=== PATIENT | female | born 1960 | race Caucasian/White ===

== ENCOUNTER 2023-07-07 06:15 | Day surgery (SDC) | payer MEDICARE, BC ==
[~2023-07-07 06:15] MED LIST: Acetaminophen 325 MG Tab PO SCH; Lactated Ringers 1,000 ML IV SCH; Morphine 8 MG, EPINEPHrine 0.3 MG, Cefuroxime 750 MG, Ketorolac 30 MG, Sodium Chloride ... PRN; Pregabalin 25 MG Cap PO SCH; Sodium Chloride 0.9% 10 ML Syringe FLUSH PRN; Sodium Chloride 0.9% 10 ML Syringe FLUSH SCH; oxyCODONE ER 10 MG TAB.ER PO SCH
[2023-07-07] MEDS ORDERED: Midazolam 1 MG/ML 2 ML SDV ONE (06:19)
[2023-07-07] MEDS ORDERED: Ketorolac 30 MG/ML SDV ONE (06:20)
[2023-07-07] MEDS ORDERED: ceFAZolin 2 GM Vial ONE (06:20)
[2023-07-07] MEDS ORDERED: Propofol 200 MG/20 ML SDV ONE (06:20)
[2023-07-07] MEDS ORDERED: Lidocaine 1% 5 ML VIAL ONE (06:20)
[2023-07-07] MEDS ORDERED: Ondansetron 4 MG/2 ML SDV ONE (06:20)
[2023-07-07] MEDS ORDERED: Ropivacaine 0.5% 5 MG/ML 30 ML SDV ONE (06:31)
[2023-07-07] MEDS ORDERED: Vancomycin 1 GM SDV ONE (06:42)
[2023-07-07] MEDS ORDERED: Tranexamic Acid 1,000 MG/10 ML Vial ONE (06:42)
[2023-07-07] MEDS ORDERED: Ondansetron 4 MG/2 ML SDV IVPUSH PRN (06:51)
[2023-07-07] MEDS ORDERED: HYDROmorphone 0.5 MG/0.5 ML Syringe IVPUSH PRN (06:51)
[2023-07-07] MEDS ORDERED: Naloxone 0.4 MG/ML SDV IVPUSH PRN (06:51)
[2023-07-07] MEDS ORDERED: fentaNYL 100 MCG/2 ML SDV ONE (08:11)
[2023-07-07] MEDS ORDERED: ePHEDrine 50 MG/ML SDV ONE (08:26)
[2023-07-07] MEDS ORDERED: Rocuronium 50 MG/5 ML Vial ONE (08:45)
[2023-07-07] MEDS ORDERED: HYDROmorphone 0.5 MG/0.5 ML Syringe ONE ×3 (08:46→09:21)
[2023-07-07] MEDS ORDERED: Sugammadex Sodium 200 MG/2 ML VIAL ONE (09:10)
[2023-07-07] MEDS: fentaNYL 100 MCG/2 ML SDV IVPUSH PRN ×2 (10:07→10:20)
[2023-07-07] MEDS ORDERED: oxyCODONE 5 MG Tab PO PRN (10:36)
[2023-07-07] MEDS ORDERED: Cyclobenzaprine 10 MG Tab PO PRN (10:37)
[2023-07-07] MEDS ORDERED: Prochlorperazine 10 MG/2 ML SDV IVPUSH PRN (14:31)
== END 2023-07-07 16:44 | disposition home or self-care (01) ==
LOC: JD.SDS 06:15
PROVIDERS: ATTEND Orthopaedic Surgery
DX: M17.11 Unilateral primary osteoarthritis, right knee (principal); I10 Essential (primary) hypertension; E78.5 Hyperlipidemia, unspecified; E03.9 Hypothyroidism, unspecified; C50.212 Malignant neoplasm of upper-inner quadrant of left female breast; K21.9 Gastro-esophageal reflux disease without esophagitis; E66.01 Morbid (severe) obesity due to excess calories; Z68.41 Body mass index [BMI] 40.0-44.9, adult; I89.0 Lymphedema, not elsewhere classified; Z79.890 Hormone replacement therapy; Z79.82 Long term (current) use of aspirin; Z79.899 Other long term (current) drug therapy; Z91.018 Allergy to other foods
CPT/HCPCS: 01402; 73560-26-RT; 73560-RT; 97110-GP; 97116-GP; 97161-GP; A9270-GY; C1713; C1776; J0171; J0690; J0697; J0780; J1170; J1885; J2250; J2270; J2405; J2704; J2795; J3010; J3370; J3490; J7030; J7120